=== PATIENT | female | born 1965 | race Caucasian/White ===

== ENCOUNTER → 2018-01-21 | Outpatient (CLI) | payer OTHER ==
[~2018-01-21] MED LIST: CYMBALTA60 MG PO; LEVOTHYROXINE0.05 MG PO; OXYIR5 MG PO
== END ==
LOC: M.RAD 14:02
DX: Z12.31 Encounter for screening mammogram for malignant neoplasm of breast (principal)

== ENCOUNTER → 2018-12-31 | Outpatient (CLI) | payer OTHER | LOC: M.ULTRA 15:49 | DX: Z78.0 Asymptomatic menopausal state (principal) ==

== ENCOUNTER → 2019-03-01 | Outpatient (CLI) | payer OTHER | LOC: M.RAD 13:22 | DX: Z12.31 Encounter for screening mammogram for malignant neoplasm of breast (principal) ==